=== PATIENT | female | born 1950 | race Caucasian/White ===

== ENCOUNTER 2019-03-12 20:52 | Emergency (ER) | payer MEDICARE, BC ==
[2019-03-12] MEDS ORDERED: HYDROcodone/Acetaminophen 5/325 mg Tablet ONE (21:43)
--- NOTE | 2019-03-12 21:59 | RAD ---
XR Knee Rt 4 View STANDARD History: Injury Comparison: None. Findings: Large prepatellar soft tissue hematoma and contusion. No underlying fracture or malalignmen t. No significant joint effusion. Impression: Large prepatellar hematoma and contusion.
--- NOTE | 2019-03-12 22:00 | RAD ---
XR Knee Lt 4 View STANDARD History: Injury Comparison: None. Findings: No acute fracture or malalignment. No joint effusion. Low-grade prepatellar soft tissue swe lling. Impression: No acute osseous abnormality. Low-grade prepatellar soft tissue swelling.
--- NOTE | 2019-03-12 22:14 | RAD ---
XR Elbow Lt 4 View STANDARD History: Injury Comparison: None. Findings: Soft tissue contusion along the lateral elbow and dorsal elbow. No acute fracture or malali gnment. Low-grade medial compartment joint space narrowing. Impression: Soft tissue contusion without fracture.
== END 2019-03-12 23:30 | disposition home or self-care (01) ==
LOC: MADERS 20:52
DX: S80.02XA Contusion of left knee, initial encounter (principal); S80.01XA Contusion of right knee, initial encounter; S50.02XA Contusion of left elbow, initial encounter; K21.9 Gastro-esophageal reflux disease without esophagitis; G43.909 Migraine, unspecified, not intractable, without status migrainosus; F32.9 Major depressive disorder, single episode, unspecified; W18.30XA Fall on same level, unspecified, initial encounter

== ENCOUNTER 2020-03-15 14:22 | Outpatient (CLI) | payer MEDICARE, BC ==
--- NOTE | 2020-03-15 14:48 | RAD ---
Exam: XR Shoulder Lt 3 View STANDARD HISTORY: Left shoulder pain. COMPARISON: None FINDINGS: No acute fracture, dislocation, or other acute osseous abnormality is identified. IMPRESSION: No acute osseous abnormality is identified.
== END 2020-03-15 14:23 | disposition home or self-care (01) ==
LOC: MADRAD 14:22
PROVIDERS: ATTEND Nurse Practitioner Family
DX: S49.90XA Unspecified injury of shoulder and upper arm, unspecified arm, initial encounter (principal); M25.512 Pain in left shoulder